=== PATIENT | female | born 1975 | race Caucasian/White ===

== ENCOUNTER → 2017-01-19 | Outpatient (CLI) | payer OTHER ==
--- NOTE | 2017-01-19 16:50 | US ---
EXAMINATION TYPE: US transvaginal DATE OF EXAM: 01/19/2017 4:15 PM COMPARISON: US on PACS December 19, 2015 CLINICAL HISTORY: N95.0 Post menopausal bleeding. PMB x 3 days; Menses ceased after chemotherapy for Breast CA 2009; only meds are for hypothyroidism TECHNIQUE: Transvaginal (TV) as bladder not full. Single image from attempted transabdominal evaluat ion is saved. Date of LMP: NA EXAM MEASUREMENTS: Uterus: 5.8 x 3.8 x 3.2 cm Endometrial Stripe: 0.4 cm Right Ovary: 1.3 x 0.9 x 0.6 cm Left Ovary: 1.3 x 1.1 x 1.0 cm 1. Uterus: Retroverted 2. Endometrium: thickness is wnl for post menopausal patient 3. Right Ovary: wnl 4. Left Ovary: wnl 5. Bilateral Adnexa: wnl 6. Posterior cul-de-sac: wnl Uterus remains markedly heterogeneous in appearance. Endometrium does not appear thickened it is diff icult to distinctly visualized. No free fluid is seen in pelvis. Small ovaries bilaterally are consis tent with postmenopausal state. No suspicious adnexal masses are seen. IMPRESSION: No suspicious endometrial thickening. No significant finding is seen to account for patie nt's symptoms.
== END ==
LOC: RADUSWWP 15:29
PROVIDERS: ATTEND Obstetrics & Gynecology
DX: N95.0 Postmenopausal bleeding (principal)
CPT/HCPCS: 76830

== ENCOUNTER → 2018-01-14 | Outpatient (CLI) | payer OTHER ==
--- NOTE | 2018-01-14 15:57 | US ---
EXAMINATION TYPE: US transvaginal DATE OF EXAM: 01/14/2018 COMPARISON: 01/19/2017 CLINICAL HISTORY: 42-year-old female N95.0 Post menopausal bleeding. Pt states couple of episodes of vaginal bleeding this year/ pt has history of breast CA in 2010 and put in chemo induced menopause/ p t not taking hormones TECHNIQUE: Transvaginal (TV). Findings: Uterus: Retroverted measuring 8.6 x 4.1 x 5.1 cm. Questionable scar. Endometrial Stripe: 1.1 cm, uniformly thickened well with a 5 mm fundal cystic structure. Right Ovary: 2.9 x 2.2 x 1.5 cm with a 1.9 cm cyst. Left Ovary: 1.7 x 1.4 x 0.9 cm No evident adnexal abnormality. Scant pelvic free fluid. IMPRESSION: 1. The endometrial stripe is now uniformly thickened at 1.1 cm. If the patient is postmenopausal, cor relate for possibility of endometrial hyperplasia. Nonspecific 5 mm endometrial cyst along the fundus . Follow-up as indicated especially as neoplasm is on the differential for postmenopausal thickening of the endometrial stripe. 2. Query scar. 3. A 1.9 cm dominant follicle or functional cyst within the right ovary.
== END | disposition home or self-care (01) ==
LOC: RADUSWWP 14:47
PROVIDERS: ATTEND Obstetrics & Gynecology
DX: N85.8 Other specified noninflammatory disorders of uterus (principal); R93.8 Abnormal findings on diagnostic imaging of other specified body structures
CPT/HCPCS: 76830

== ENCOUNTER 2018-11-13 20:44 | Emergency (ER) | payer OTHER ==
[2018-11-13 21:26] VITALS: TEMP 98.2
--- NOTE | 2018-11-13 21:49 | ED ---
Headache HPI - General Chief Complaint: Headache Stated Complaint: Headache Time Seen by Provider: 11/13/18 21:44 Source: RN notes reviewed, old records reviewed Mode of arrival: ambulatory Limitations: no limitations - History of Present Illness Initial Comments: This is a 43-year-old female with nausea vomiting and headache. Patient coming in with symptoms that started this morning and progressed throughout the day and noted a persistent throughout the day. No modifying factors she did take Tylenol with no help. No trauma no fevers. Patient denies significant prior history of headache. She does have remote history of breast CA, no recent change in medications and patient takes no other medications. Denies drug or alcohol abuse MD Complaint: headache -: hour(s) (10) Onset Description: gradual Location: frontal Severity: moderate Severity scale (1-10): 6 Quality: constant Consistency: constant Improves With: nothing Worsens With: none Context: occurred at rest Associated Symptoms: vomiting - Related Data Home Medications Medication Instructions Recorded Confirmed Acetaminophen Tab [Tylenol] 650 mg PO Q8H 11/13/18 11/13/18 Levothyroxine Sodium [Synthroid] 137 mcg PO DAILY 11/13/18 11/13/18 Mirabegron [Myrbetriq] 50 mg PO DAILY 11/13/18 11/13/18 buPROPion XL [Wellbutrin XL] 300 mg PO DAILY 11/13/18 11/13/18 Allergies Allergy/AdvReac Type Severity Reaction Status Date / Time No Known Allergies Allergy Verified 11/13/18 22:10 Review of Systems ROS Statement: Those systems with pertinent positive or pertinent negative responses have been documented in the HPI. ROS Other: All systems not noted in ROS Statement are negative. Past Medical History Past Medical History: Cancer Additional Past Medical History / Comment(s): abnormal heart rate that is gone after heart cath History of Any Multi-Drug Resistant Organisms: None Reported Past Surgical History: Breast Surgery, Section, Heart Catheterization, Tubal Ligation Past Psychological History: No Psychological Hx Reported Smoking Status: Never smoker Past Alcohol Use History: Rare Past Drug Use History: None Reported General Exam Limitations: no limitations General appearance: alert, in no apparent distress Head exam: Present: atraumatic, normocephalic, normal inspection Eye exam: Present: normal appearance, PERRL, EOMI. Absent: scleral icterus, conjunctival injection, periorbital swelling ENT exam: Present: normal exam, mucous membranes moist Neck exam: Present: normal inspection. Absent: tenderness, meningismus, lymphadenopathy Respiratory exam: Present: normal lung sounds bilaterally. Absent: respiratory distress, wheezes, rales, rhonchi, stridor Cardiovascular Exam: Present: regular rate, normal rhythm, normal heart sounds. Absent: systolic murmur, diastolic murmur, rubs, gallop, clicks GI/Abdominal exam: Present: soft, normal bowel sounds. Absent: distended, tenderness, guarding, rebound, rigid Extremities exam: Present: normal inspection, full ROM, normal capillary refill. Absent: tenderness, pedal edema, joint swelling, calf tenderness Back exam: Present: normal inspection Neurological exam: Present: alert, oriented X3, CN II-XII intact Psychiatric exam: Present: normal affect, normal mood Skin exam: Present: warm, dry, intact, normal color. Absent: rash Course Vital Signs 11/13/18 11/13/18 11/14/18 21:22 22:24 00:08 Temperature 98.2 F Pulse Rate 86 81 71 Respiratory 16 20 18 Rate Blood Pressure 146/86 127/86 126/80 O2 Sat by Pulse 97 99 97 Oximetry 11/14/18 00:51 Temperature Pulse Rate 81 Respiratory 20 Rate Blood Pressure 126/80 O2 Sat by Pulse 97 Oximetry - Reevaluation(s) Reevaluation #1: 11/13/18 23:17 Medical record is reviewed noncontributory Reevaluation #2: 11/13/18 23:17 Patient's headache is improved Headache is now resolved Patient spoke at length regarding positive negatives of lumbar puncture for possible encephalitis, patient is without meningeal sign, patient states her headache is now resolved, return if headache continues to persist Medical Decision Making - Medical Decision Making 43 female the ER with nonspecific headache. Patient is CT and CTA, negative for aneurysm or acute disease. Patient's headache is resolved and she would like to be discharged home - Lab Data Result diagrams: 11/13/18 22:15 11/13/18 22:15 Lab Results 11/13/18 11/13/18 11/13/18 Range/Units 22:15 22:15 22:15 WBC 8.3 (3.8-10.6) k/uL RBC 5.13 (3.80-5.40) m/uL Hgb 15.4 (11.4-16.0) gm/dL Hct 45.0 (34.0-46.0) % MCV 87.8 (80.0-100.0) fL MCH 30.0 (25.0-35.0) pg MCHC 34.1 (31.0-37.0) g/dL RDW 12.9 (11.5-15.5) % Plt Count 357 (150-450) k/uL Neutrophils % 77 % Lymphocytes % 15 % Monocytes % 5 % Eosinophils % 1 % Basophils % 0 % Neutrophils # 6.4 (1.3-7.7) k/uL Lymphocytes # 1.2 (1.0-4.8) k/uL Monocytes # 0.5 (0-1.0) k/uL Eosinophils # 0.1 (0-0.7) k/uL Basophils # 0.0 (0-0.2) k/uL PT (9.0-12.0) sec INR (<1.2) APTT (22.0-30.0) sec Sodium 142 (137-145) mmol/L Potassium 4.1 (3.5-5.1) mmol/L Chloride 107 (98-107) mmol/L Carbon Dioxide 26 (22-30) mmol/L Anion Gap 9 mmol/L BUN 13 (7-17) mg/dL Creatinine 0.61 (0.52-1.04) mg/dL Est GFR (CKD-EPI)AfAm >90 (>60 ml/min/1.73 sqM) Est GFR (CKD-EPI)NonAf >90 (>60 ml/min/1.73 sqM) Glucose 109 H (74-99) mg/dL Calcium 10.1 (8.4-10.2) mg/dL Phosphorus 3.7 (2.5-4.5) mg/dL Magnesium 2.2 (1.6-2.3) mg/dL Total Bilirubin 0.5 (0.2-1.3) mg/dL AST 19 (14-36) U/L ALT 18 (9-52) U/L Alkaline Phosphatase 77 (38-126) U/L Total Creatine Kinase 56 (30-135) U/L CK-MB (CK-2) 0.4 (0.0-2.4) ng/mL CK-MB (CK-2) Rel Index 0.7 Total Protein 7.7 (6.3-8.2) g/dL Albumin 4.6 (3.5-5.0) g/dL 11/13/18 Range/Units 22:15 WBC (3.8-10.6) k/uL RBC (3.80-5.40) m/uL Hgb (11.4-16.0) gm/dL Hct (34.0-46.0) % MCV (80.0-100.0) fL MCH (25.0-35.0) pg MCHC (31.0-37.0) g/dL RDW (11.5-15.5) % Plt Count (150-450) k/uL Neutrophils % % Lymphocytes % % Monocytes % % Eosinophils % % Basophils % % Neutrophils # (1.3-7.7) k/uL Lymphocytes # (1.0-4.8) k/uL Monocytes # (0-1.0) k/uL Eosinophils # (0-0.7) k/uL Basophils # (0-0.2) k/uL PT 10.4 (9.0-12.0) sec INR 1.0 (<1.2) APTT 25.0 (22.0-30.0) sec Sodium (137-145) mmol/L Potassium (3.5-5.1) mmol/L Chloride (98-107) mmol/L Carbon Dioxide (22-30) mmol/L Anion Gap mmol/L BUN (7-17) mg/dL Creatinine (0.52-1.04) mg/dL Est GFR (CKD-EPI)AfAm (>60 ml/min/1.73 sqM) Est GFR (CKD-EPI)NonAf (>60 ml/min/1.73 sqM) Glucose (74-99) mg/dL Calcium (8.4-10.2) mg/dL Phosphorus (2.5-4.5) mg/dL Magnesium (1.6-2.3) mg/dL Total Bilirubin (0.2-1.3) mg/dL AST (14-36) U/L ALT (9-52) U/L Alkaline Phosphatase (38-126) U/L Total Creatine Kinase (30-135) U/L CK-MB (CK-2) (0.0-2.4) ng/mL CK-MB (CK-2) Rel Index Total Protein (6.3-8.2) g/dL Albumin (3.5-5.0) g/dL - EKG Data -: EKG Interpreted by Me (EKG shows sinus rhythm rate of 82, UT 136, QRS 94, QTc 493) - Radiology Data Radiology results: report reviewed (CT of the brain and cow CTA, negative for acute disease), image reviewed Disposition Clinical Impression: Headache Disposition: HOME SELF-CARE Condition: Good Instructions (If sedation given, give patient instructions): Acute Headache (ED ) Is patient prescribed a controlled substance at d/c from ED?: No Referrals: Paras Calvo DO [Primary Care Provider] - 1-2 days
[2018-11-13] MEDS ORDERED: MORPHINE SULFATE 4 MG/ML SYRINGE IV STA (22:04)
[2018-11-13] MEDS ORDERED: SODIUM CHLORIDE 0.9% 1,000 ML IV STA (22:04)
[2018-11-13] MEDS ORDERED: MORPHINE SULFATE 4 MG/ML SYRINGE IVP STA (22:04)
[2018-11-13] MEDS ORDERED: ONDANSETRON 4 MG/2 ML VIAL IVP STA ×2 (22:04)
[2018-11-13] MEDS ORDERED: methylPREDNISolone SOD SUCCI 250 MG in SODIUM CHLORIDE 0.9% 100 ML IVPB STA ×2 (22:05→23:27)
[2018-11-13 22:45] LABS: Basophils % (A) 0 %; Eosinophils # (A) 0.1 k/uL (0-0.7); Eosinophils % (A) 1 %; HGB 15.4 gm/dL (11.4-16.0); Lymphocytes # (A) 1.2 k/uL (1.0-4.8); Lymphocytes % (A) 15 %; MCHC 34.1 g/dL (31.0-37.0); MCV 87.8 fL (80.0-100.0); Mean Platelet Volume 6.3; Monocytes # (A) 0.5 k/uL (0-1.0); Monocytes % (A) 5 %; Neutrophils # (A) 6.4 k/uL (1.3-7.7); Neutrophils % (A) 77 %; Platelet Count 357 k/uL (150-450); RBC 5.13 m/uL (3.80-5.40); RDW 12.9 % (11.5-15.5); WBC 8.3 k/uL (3.8-10.6)
[2018-11-13 22:53] LABS: ALT 18 U/L (9-52); AST 19 U/L (14-36); Albumin 4.6 g/dL (3.5-5.0); Alkaline Phosphatase 77 U/L (38-126); Anion Gap 9 mmol/L; Blood Urea Nitrogen 13 mg/dL (7-17); Calcium 10.1 mg/dL (8.4-10.2); Carbon Dioxide 26 mmol/L (22-30); Chloride 107 mmol/L (98-107); Glucose 109 mg/dL (74-99); Magnesium 2.2 mg/dL (1.6-2.3); Phosphorus 3.7 mg/dL (2.5-4.5); Potassium 4.1 mmol/L (3.5-5.1); Sodium 142 mmol/L (137-145); Total Bilirubin 0.5 mg/dL (0.2-1.3); Total Protein 7.7 g/dL (6.3-8.2)
[2018-11-13 23:05] LABS: Prothrombin Time 10.4 sec (9.0-12.0)
[2018-11-13 23:15] LABS: Creatine Kinase MB 0.4 ng/mL (0.0-2.4)
--- NOTE | 2018-11-13 23:26 | CT ---
EXAMINATION TYPE: CT brain wo con DATE OF EXAM: 11/13/2018 COMPARISON: 04/29/2011 HISTORY: headache CT DLP: 2013.2 combined DLP mGycm. Automated Exposure Control for Dose Reduction was Utilized. TECHNIQUE: CT scan of the head is performed without contrast. FINDINGS: Ventricles have normal size. There is no mass effect nor midline shift. There is no sign of intracranial hemorrhage. Calvarium is intact. Impression negative CT scan of the brain. No change.
--- NOTE | 2018-11-13 23:40 | CT ---
EXAMINATION TYPE: CT angio COW [place] [facility] [place] DATE OF EXAM: 11/13/2018 11:09 PM COMPARISON: None HISTORY: Headache CT DLP: mGycm Automated exposure control for dose reduction was used. TECHNIQUE: Performed , patient injected with mL of . . The contrast was Isovue 100 mL. There are 3-D post processed images. FINDINGS: There is arterial flow in the vertebrobasilar artery system. The basilar artery appears normal. Verte bral arteries are symmetric. There is bilateral distal internal carotid artery arterial flow. There is arterial flow in the anterior middle and posterior cerebral arteries. I see no mass effect. There is no evidence of aneurysm or neovascularity. There is bilateral arterial flow in the posterior communicating arteries. There is normal contrast op acification of the venous sinuses. There is no evidence of hemodynamic stenosis. IMPRESSION: NEGATIVE CT ANGIOGRAM OF THE BRAIN.
[2018-11-14 00:10] VITALS: BP 126/80
[2018-11-14] MEDS ORDERED: KETOROLAC 30 MG/ML 1 ML VIAL IVP STA (00:22)
[2018-11-14] MEDS ORDERED: diphenhydrAMINE 50 MG/ML 1 ML VIAL IVP STA (00:22)
[2018-11-14 00:52] VITALS: PULSE 81; RESP 20
== END 2018-11-14 01:17 | disposition home or self-care (01) ==
LOC: EC 20:44
DX: R51 Headache (principal); R11.2 Nausea with vomiting, unspecified; Z79.890 Hormone replacement therapy; Z79.891 Long term (current) use of opiate analgesic; Z79.899 Other long term (current) drug therapy; Z85.3 Personal history of malignant neoplasm of breast; Z86.79 Personal history of other diseases of the circulatory system; Z95.818 Presence of other cardiac implants and grafts; Z98.890 Other specified postprocedural states
CPT/HCPCS: 36415; 93005; 80053; 82550; 82553; 83735; 84100; 85025; 85610; 85730; 70496; 70450; 99285; 96365; 96375 ×4; 96361; J2270; J1200; J2930; J2405; J1885; Q9967

== ENCOUNTER → 2021-08-21 | Outpatient (CLI) | payer OTHER ==
--- NOTE | 2021-08-22 08:57 | US ---
EXAMINATION TYPE: US transvaginal DATE OF EXAM: 08/21/2021 COMPARISON: US CLINICAL HISTORY: N95.0 Postmenopausal bleeding. Pt states abnormal vaginal bleeding in March 2021 TECHNIQUE: Transvaginal (TV). Transvaginal sonographic images of the pelvis were acquired. Date of LMP: March 2021 EXAM MEASUREMENTS: Uterus: 7.9 x 3.7 x 5.0 cm Endometrial Stripe: 1.0 cm 1. Uterus: Anteverted Heterogeneous, with Nabothian cysts in cervix 2. Endometrium: Thickened for pt's postmenopausal status and symptomatic 3. Right Ovary: Obscured by overlying bowel gas 4. Left Ovary: Obscured by overlying bowel gas 5. Bilateral Adnexa: wnl 6. Posterior cul-de-sac: wnl IMPRESSION: 1. Visualized pelvic ultrasound is unremarkable. Exam is limited due to bowel gas.
== END | disposition home or self-care (01) ==
LOC: RADUSWWP 16:07
PROVIDERS: ATTEND Obstetrics & Gynecology
DX: N95.0 Postmenopausal bleeding (principal)
CPT/HCPCS: 76830

== ENCOUNTER → 2021-12-03 | Outpatient (CLI) | payer OTHER ==
--- NOTE | 2021-12-03 18:27 | BD ---
EXAMINATION TYPE: Axial Bone Density DATE OF EXAM: 12/03/2021 COMPARISON: 2010 CLINICAL HISTORY: menopausal Height: 5'3 Weight: 207 FRAX RISK QUESTIONS: Secondary Osteoporosis: 3. Menopause before 45: y RISK FACTORS HISTORY OF: Diet low in dairy products/other sources of calcium: y Postmenopausal woman: y MEDICATIONS: Thyroid Medications: Which medication: Levothyroxine How Lon years Additional Medications: bladder control, Additional History: breast cancer 2008 , radiation, chemotherapy EXAM MEASUREMENTS: Bone mineral densitometry was performed using the [employer]io[employer] System. Bone mineral density as measured about the Lumbar spine is: ----- L1-L4(G/cm2): 1.276 T Score Values are as follows: ----- L2: 0.5 ----- L3: 1.3 ----- L4: 0.2 ----- L1-L4:0.8 comparison : increased 6.0% since 08/13/2011 Bone mineral density about the R hip (g/cm2): 1.084 Bone mineral density about the L hip (g/cm2): 1.027 T Score values are as follows: -----R Neck: 0.3 -----L Neck: -0.1 -----R Total: 0.8 -----L Total: 0.6 comparison : increased 9.6% since 08/13/2011 IMPRESSION: Normal (Values between +1 and -1 indicate normal bone mass). Consider repeating this study in 5 year s or sooner if there is some new clinical indication. NOTE: T-SCORE=SD OF THE YOUNG ADULT MEAN.
== END | disposition home or self-care (01) ==
LOC: RADBDWWP 15:38
PROVIDERS: ATTEND Obstetrics & Gynecology
DX: N95.1 Menopausal and female climacteric states (principal)
CPT/HCPCS: 77080

== ENCOUNTER → 2022-03-19 | Outpatient (CLI) | payer OTHER ==
[2022-03-19 15:03] VITALS: BMI 35.2
== END ==
LOC: DBWHC3 12:54
PROVIDERS: ATTEND Family Medicine
DX: E66.9 Obesity, unspecified (principal); B37.3 Candidiasis of vulva and vagina; I10 Essential (primary) hypertension; N94.819 Vulvodynia, unspecified; Z85.3 Personal history of malignant neoplasm of breast; E03.9 Hypothyroidism, unspecified; E78.2 Mixed hyperlipidemia; F32.A Depression, unspecified; N39.3 Stress incontinence (female) (male); Z68.35 Body mass index [BMI] 35.0-35.9, adult
CPT/HCPCS: 97802

== ENCOUNTER 2024-01-20 06:56 | Emergency (ER) | payer OTHER ==
[2024-01-20 07:22] VITALS: TEMP 97.9
--- NOTE | 2024-01-20 07:40 | ED ---
General Adult HPI - General Chief complaint: Arrhythmia/Palpitations Stated complaint: rapid heart rate Time Seen by Provider: 01/20/24 07:19 Source: patient Mode of arrival: ambulatory Limitations: no limitations - History of Present Illness Initial comments: Dictation was produced using [employer] dictation software. please excuse any grammatical, word or spelling errors. Chief Complaint: 48-year-old female presents to the emergency department with palpitations History of Present Illness: Patient is a 48-year-old female she has no significant cardiac comorbidities. Presents emergency department with several hours of feeling like her heart rate is beating hard and fast. Patient denies any cardiac history. She had a episode similar 16 years ago and had extensive cardiac workup with no apparent cause. Patient otherwise has no other complaints. No constitutional symptoms. Denies any chest pain. She has remote history of breast cancer. The ROS documented in this emergency department record has been reviewed and confirmed by me. Those systems with pertinent positive or negative responses have been documented in the HPI. All other systems are other negative and/or noncontributory. - Related Data Home Medications Medication Instructions Recorded Confirmed Acetaminophen Tab [Tylenol] 650 mg PO Q8H 11/13/18 11/13/18 Levothyroxine Sodium [Synthroid] 137 mcg PO DAILY 11/13/18 11/13/18 Mirabegron [Myrbetriq] 50 mg PO DAILY 11/13/18 11/13/18 buPROPion XL [Wellbutrin XL] 300 mg PO DAILY 11/13/18 11/13/18 Allergies Allergy/AdvReac Type Severity Reaction Status Date / Time No Known Allergies Allergy Verified 01/20/24 07:13 Review of Systems ROS Statement: Those systems with pertinent positive or pertinent negative responses have been documented in the HPI. ROS Other: All systems not noted in ROS Statement are negative. Past Medical History Past Medical History: Cancer Additional Past Medical History / Comment(s): abnormal heart rate that is gone after heart cath History of Any Multi-Drug Resistant Organisms: None Reported Past Surgical History: Breast Surgery, Section, Heart Catheterization, Tubal Ligation Past Psychological History: No Psychological Hx Reported Smoking Status: Never smoker Past Alcohol Use History: Rare Past Drug Use History: None Reported General Exam - General Exam Comments Initial Comments: PHYSICAL EXAM: General Impression: Alert and oriented x3, not in acute distress HEENT: Normocephalic atraumatic, extra-ocular movements intact, pupils equal and reactive to light bilaterally, mucous membranes moist. 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 170, QRS 99, QTc 421. No [place] prolongation, no QTC prolongation, no ST or T-wave changes noted. Overall, this EKG is unremarkable Medical Decision Making - Medical Decision Making Was pt. sent in by a medical professional or institution (, PA, FREELANCE DIRECTOR, urgent care, hospital, or senior care...) When possible be specific @ -No Did you speak to anyone other than the patient for history (EMS, parent, family, police, friend...)? What history was obtained from this source @ -No Did you review nursing and triage notes (agree or disagree)? Why? @ -I reviewed and agree with nursing and triage notes Were old charts reviewed (outside hosp., previous admission, EMS record, old EKG, old radiological studies, urgent care reports/EKG's, senior care records)? Report findings @ -No old charts were reviewed Differential Diagnosis (chest pain, altered mental status, abdominal pain women, abdominal pain men, vaginal bleeding, musculoskeletal, weakness, fever, dyspnea, syncope, headache, dizziness, GI bleed, back pain, seizure, CVA, palpatations, mental health)? @ - Differential Palpitations: Ventricular arrhythmias, atrial arrhythmias, myocardial infarction, anemia, thyrotoxicosis, electrolyte imbalance, hypokalemia, pulmonary embolism, pulmonary disease, drugs, alcohol, anxiety, stress.... This is not meant to be an all-inclusive list. EKG interpreted by me (3pts min.). @ -See above X-rays interpreted by me (1pt min.). @ -None done CT interpreted by me (1pt min.). @ -None done U/S interpreted by me (1pt. min.). @ -None done What testing was considered but not performed or refused? (CT, X-rays, U/S, labs)? Why? @ -None What meds were considered but not given or refused? Why? @ -None Did you discuss the management of the patient with other professionals (professionals i.e. , PA, FREELANCE DIRECTOR, lab, RT, psych nurse, social worker school, tile finisher, teacher, environmental officer, transplant case manager)? Give summary @ -No Was smoking cessation discussed for >3mins.? @ -No Was critical care preformed (if so, how long)? @ -No Were there social determinants of health that impacted care today? How? (Homelessness, low income, unemployed, alcoholism, drug addiction, transportation, low edu. Level, literacy, decrease access to med. care, shelter, rehab)? @ -No Was there de-escalation of care discussed even if they declined (Discuss DNR or withdrawal of care, Hospice)? DNR status @ -No What co-morbidities impacted this encounter? (DM, HTN, Smoking, COPD, CAD, Cancer, CVA, ARF, Chemo, Hep., AIDS, mental health diagnosis, sleep apnea, morbid obesity)? @ -None Was patient admitted / discharged? Hospital course, mention meds given and route, prescriptions, significant lab abnormalities, going to OR and other pertinent info. @ -48-year-old female presents to the emergency department with chief complaint of palpitations. Vital signs upon arrival are within acceptable limits. EKG is normal. Patient is not tachycardic. She does have some occasional PVCs. Laboratory evaluation obtained. CBC, coag panel metabolic panel is unremarkable. TSH however is low. Patient does take thyroid medications for hypothyroidism. She states that once ago she had her thyroid medication increased. She was told to follow-up with her primary care doctor for thyroid medication adjustment. Undiagnosed new problem with uncertain prognosis? @ -No Drug Therapy requiring intensive monitoring for toxicity (Heparin, Nitro, Insulin, Cardizem)? @ -No Were any procedures done? @ -No Diagnosis/symptom? Acute, or Chronic, or Acute on Chronic? Uncomplicated (without systemic symptoms) or Complicated (systemic symptoms)? @ -Palpitations Side effects of treatment? @ -No Exacerbation, Progression, or Severe Exacerbation? @ -No Poses a threat to life or bodily function? How? (Chest pain, [place], PR, pneumonia, PE, COPD, DKA, ARF, appy, cholecystitis, CVA, Diverticulitis, Homicidal, Suicidal, threat to staff... and all critical care pts) @ -No - Lab Data Result diagrams: 01/20/24 07:52 01/20/24 07:52 Lab Results 01/20/24 01/20/24 01/20/24 Range/Units 07:52 07:52 07:52 WBC 4.1 (3.8-10.6) k/uL RBC 4.87 (3.80-5.40) m/uL Hgb 14.3 (11.4-16.0) gm/dL Hct 42.8 (34.0-46.0) % MCV 87.8 (80.0-100.0) fL MCH 29.4 (25.0-35.0) pg MCHC 33.5 (31.0-37.0) g/dL RDW 12.2 (11.5-15.5) % Plt Count 303 (150-450) k/uL MPV 7.6 Neutrophils % 60 % Lymphocytes % 28 % Monocytes % 6 % Eosinophils % 2 % Basophils % 1 % Neutrophils # 2.5 (1.3-7.7) k/uL Lymphocytes # 1.1 (1.0-4.8) k/uL Monocytes # 0.3 (0-1.0) k/uL Eosinophils # 0.1 (0-0.7) k/uL Basophils # 0.0 (0-0.2) k/uL PT 11.5 (10.0-12.5) sec INR 1.1 (<1.2) APTT 26.0 (22.0-30.0) sec Sodium 140 (137-145) mmol/L Potassium 4.3 (3.5-5.1) mmol/L Chloride 108 H (98-107) mmol/L Carbon Dioxide 23 (22-30) mmol/L Anion Gap 9 mmol/L BUN 12 (7-17) mg/dL Creatinine 0.44 L (0.52-1.04) mg/dL Est GFR (CKD-EPI)AfAm >90 (>60 ml/min/1.73 sqM) Est GFR (CKD-EPI)NonAf >90 (>60 ml/min/1.73 sqM) Glucose 101 H (74-99) mg/dL Calcium 9.8 (8.4-10.2) mg/dL Magnesium 2.2 (1.6-2.3) mg/dL Troponin I (0.000-0.034) ng/mL TSH <0.015 L (0.465-4.680) mIU/L 01/20/24 Range/Units 07:52 WBC (3.8-10.6) k/uL RBC (3.80-5.40) m/uL Hgb (11.4-16.0) gm/dL Hct (34.0-46.0) % MCV (80.0-100.0) fL MCH (25.0-35.0) pg MCHC (31.0-37.0) g/dL RDW (11.5-15.5) % Plt Count (150-450) k/uL MPV Neutrophils % % Lymphocytes % % Monocytes % % Eosinophils % % Basophils % % Neutrophils # (1.3-7.7) k/uL Lymphocytes # (1.0-4.8) k/uL Monocytes # (0-1.0) k/uL Eosinophils # (0-0.7) k/uL Basophils # (0-0.2) k/uL PT (10.0-12.5) sec INR (<1.2) APTT (22.0-30.0) sec Sodium (137-145) mmol/L Potassium (3.5-5.1) mmol/L Chloride (98-107) mmol/L Carbon Dioxide (22-30) mmol/L Anion Gap mmol/L BUN (7-17) mg/dL Creatinine (0.52-1.04) mg/dL Est GFR (CKD-EPI)AfAm (>60 ml/min/1.73 sqM) Est GFR (CKD-EPI)NonAf (>60 ml/min/1.73 sqM) Glucose (74-99) mg/dL Calcium (8.4-10.2) mg/dL Magnesium (1.6-2.3) mg/dL Troponin I <0.012 (0.000-0.034) ng/mL TSH (0.465-4.680) mIU/L Disposition Clinical Impression: Palpitations Disposition: HOME SELF-CARE Condition: Good Instructions (If sedation given, give patient instructions): Heart Palpitations (ED) Additional Instructions: follow up with PCP for thyroid medication adjustment Is patient prescribed a controlled substance at d/c from ED?: No Referrals: Paras Calvo DO [Primary Care Provider] - 1-2 days Time of Disposition: 08:54
[2024-01-20 07:55] LABS: Basophils % (A) 1 %; Eosinophils # (A) 0.1 k/uL (0-0.7); Eosinophils % (A) 2 %; HCT 42.8 % (34.0-46.0); HGB 14.3 gm/dL (11.4-16.0); Lymphocytes # (A) 1.1 k/uL (1.0-4.8); Lymphocytes % (A) 28 %; MCH 29.4 pg (25.0-35.0); MCHC 33.5 g/dL (31.0-37.0); MCV 87.8 fL (80.0-100.0); Mean Platelet Volume 7.6; Monocytes # (A) 0.3 k/uL (0-1.0); Monocytes % (A) 6 %; Neutrophils # (A) 2.5 k/uL (1.3-7.7); Neutrophils % (A) 60 %; Platelet Count 303 k/uL (150-450); RBC 4.87 m/uL (3.80-5.40); RDW 12.2 % (11.5-15.5); WBC 4.1 k/uL (3.8-10.6)
[2024-01-20 08:10] LABS: African American GFR (CKD) >90 (>60 ml/min/1.73 sqM); Anion Gap 9 mmol/L; Blood Urea Nitrogen 12 mg/dL (7-17); Calcium 9.8 mg/dL (8.4-10.2); Carbon Dioxide 23 mmol/L (22-30); Chloride 108 mmol/L (98-107); Glucose 101 mg/dL (74-99); Magnesium 2.2 mg/dL (1.6-2.3); Non-African American GFR(CKD) >90 (>60 ml/min/1.73 sqM); Sodium 140 mmol/L (137-145)
[2024-01-20 08:16] LABS: Potassium 4.3 mmol/L (3.5-5.1)
[2024-01-20 08:26] LABS: INR 1.1 (<1.2); Prothrombin Time 11.5 sec (10.0-12.5)
[2024-01-20 09:28] VITALS: BP 123/82; PULSE 84; RESP 22
== END 2024-01-20 09:10 | disposition home or self-care (01) ==
LOC: EC 06:56
DX: R00.2 Palpitations (principal)
CPT/HCPCS: 36415; 80048; 83735; 84443; 84484; 85025; 85610; 85730; 93005; 99285